=== PATIENT | female | born 1935 | race Caucasian/White ===

== ENCOUNTER 2016-11-14 00:22 | Emergency (ER) | payer MEDICARE, OTHER ==
[~2016-11-14] VITALS: Ht 152.4 cm; Wt 64.0 kg
[~2016-11-14 00:22] MED LIST: ASPI81TA2 PO; ATOR20TA86 PO; BRIM5DRO10 OP; CALC-719 PO; CYAN100084 PO; FOLI1TAB15 PO; FURO20 PO; GABA-531 PO; INSLAN SQ; INSNOV SQ; MECL-111 PO; METF500T4 PO; MVI WITH MINERALS PO; NAPR250T2 PO; PANT40TA25 PO; SENN-34 PO; VICOT PO; VIT D PO; WARF5 PO
[2016-11-14] MEDS ORDERED: INSLAN SQ ×2 (00:28→00:36)
[2016-11-14] MEDS ORDERED: FENO135C PO (00:36)
[2016-11-14] MEDS ORDERED: DOCU250C91 PO (00:36)
[2016-11-14] MEDS ORDERED: SITA50 PO (00:36)
[2016-11-14] MEDS ORDERED: IBAN150T PO (00:36)
[2016-11-14] MEDS ORDERED: FAMO20 PO (00:36)
[2016-11-14] MEDS ORDERED: MELA3 PO (00:36)
[2016-11-14] MEDS ORDERED: METO5TAB95 PO (00:36)
[2016-11-14] MEDS ORDERED: METO25 PO (00:36)
[2016-11-14] MEDS ORDERED: INSNOV SQ (00:36)
[2016-11-14] MEDS ORDERED: MIRALAX PO (00:36)
[2016-11-14 01:20] LABS: BASOPHILS % (AUTO) 0.3 % (0.0-2.0); EOSINOPHILS % (AUTO) 2.4 % (1.0-6.0); HEMATOCRIT 37.6 % (36-46); HEMOGLOBIN 12.3 g/dL (12.0-16.0); LYMPHOCYTES # (AUTO) 1.1 K/uL (1.0-4.8); LYMPHOCYTES % (AUTO) 10.3 % (22.0-44.0); MEAN CORPUSCULAR HEMOGLOBIN 30.8 pg (26.0-34.0); MEAN CORPUSCULAR HGB CONC 32.8 G/dL (31.0-37.0); MEAN CORPUSCULAR VOLUME 94 fL (80-100); MONOCYTES # (AUTO) 0.7 K/uL (0.1-1.0); MONOCYTES % (AUTO) 6.8 % (2.0-9.0); NEUTROPHILS # (AUTO) 8.5 K/uL (1.8-7.7); NEUTROPHILS % (AUTO) 80.2 % (40.0-70.0); PLATELET COUNT (AUTO) 205 K/uL (150-450); RED CELL DISTRIBUTION WIDTH 16.2 % (11.5-14.5); WHITE BLOOD COUNT (AUTO) 10.6 K/uL (4.5-11.0)
[2016-11-14 01:32] LABS: CALCIUM, TOTAL 8.2 mg/dL (8.8-10.5); CREATININE 1.26 mg/dL (0.60-1.30); POTASSIUM 3.3 mmol/L (3.5-5.1)
[2016-11-14 01:38] LABS: ALBUMIN 2.6 g/dL (3.4-5.0); BILIRUBIN,TOTAL 0.3 mg/dL (0.1-1.0); TOTAL PROTEIN, SERUM 6.3 g/dL (6.4-8.2)
[2016-11-14 01:42] LABS: GLUCOSE COMMENT 1 Doctor Notified; GLUCOSE,POINT OF CARE 131 MG/DL (70-110)
[2016-11-14] MEDS ORDERED: POTASSIUM CHLORIDE 10% 40 MEQ/30 ML LIQUID UDCUP PO ONE (02:30)
[2016-11-14 02:46] LABS: GLUCOSE COMMENT 1 Doctor Notified; GLUCOSE,POINT OF CARE 105 MG/DL (70-110)
[2016-11-14 05:07] VITALS: BP 126/62
[2016-11-14 05:12] LABS: GLUCOSE,POINT OF CARE 114 MG/DL (70-110)
== END 2016-11-14 05:07 | disposition home or self-care (01) ==
LOC: EMS 00:24
DX: E11.649 Type 2 diabetes mellitus with hypoglycemia without coma (principal); E87.6 Hypokalemia; R41.82 Altered mental status, unspecified; K21.9 Gastro-esophageal reflux disease without esophagitis; Z79.4 Long term (current) use of insulin
CPT/HCPCS: 82962; 99284